=== PATIENT | male | born 1950 | race Caucasian/White ===

== ENCOUNTER 2017-10-26 00:35 | Inpatient (IN) | payer OTHER ==
[2017-10-26 02:34] LABS: ADD UMIC NO; UR ASCORBIC ACID NEGATIVE (NEGATIVE); UR BILIRUBIN (Dip) NEGATIVE (NEGATIVE); UR BLOOD (Dip) NEGATIVE (NEGATIVE); UR CLARITY CLEAR (CLEAR); UR COLOR YELLOW (YELLOW); UR GLUCOSE (Dip) NEGATIVE (NEGATIVE); UR KETONES (Dip) NEGATIVE (NEGATIVE); UR LEUKOCYTE ESTERASE (Dip) NEGATIVE Leu/ul (NEGATIVE); UR NITRITE (Dip) NEGATIVE (NEGATIVE); UR TOTAL PROTEIN (Dip) NEGATIVE (NEGATIVE); UR UROBILINOGEN (Dip) NEGATIVE (NEGATIVE)
[2017-10-26] MEDS ORDERED: BISACODYL 10 MG SUPP PR (04:00)
[2017-10-26] MEDS ORDERED: GLUCOSE GEL 15 GRAM TUBE PO ×2 (04:00)
[2017-10-26] MEDS ORDERED: GLUCOSE GEL 15 GRAM TUBE BUCCAL (04:00)
[2017-10-26] MEDS ORDERED: MAGNESIUM HYDROXIDE 30ML CUP PO (04:00)
[2017-10-26] MEDS ORDERED: GLUCAGON 1 MG INJ IM (04:00)
[2017-10-26] MEDS ORDERED: DEXTROSE 50% 50 ML SYRINGE IV ×2 (04:00)
[2017-10-26 06:48] LABS: ADD MAN DIFF? NO
[2017-10-26 06:50] LABS: WHITE BLOOD COUNT 6.8 10^3/ul (4.8-10.8)
[2017-10-26 06:50] LABS: BASOPHILS % 0.4 % (0.0-2.0); EOSINOPHILS # 0.3 10^3/ul (0.0-0.5); EOSINOPHILS % 4.7 % (0.0-7.0); HEMATOCRIT 38.7 % (42.0-52.0); HEMOGLOBIN 12.6 g/dl (14.0-18.0); LYMPHOCYTES # 2.5 10^3/ul (0.8-2.9); LYMPHOCYTES % 37.1 % (15.0-51.0); MEAN CORPUSCULAR HEMOGLOBIN 30.5 pg (29.0-33.0); MEAN CORPUSCULAR HGB CONC 32.6 g/dl (32.0-37.0); MEAN CORPUSCULAR VOLUME 93.7 fl (82.0-101.0); MEAN PLATELET VOLUME 10.5 fl (7.4-10.4); MONOCYTE # 0.6 10^3/ul (0.3-0.9); MONOCYTES % 8.6 % (0.0-11.0); NEUTROPHIL # 3.3 10^3/ul (1.6-7.5); NEUTROPHILS % 48.9 % (39.0-77.0); PLATELET COUNT 236 10^3/UL (140-415); RED BLOOD COUNT 4.13 10^6/ul (4.70-6.10); RED CELL DISTRIBUTION WIDTH 13.5 % (11.5-14.5)
[2017-10-26] MEDS: PANTOPRAZOLE (EC) 40 MG TAB PO (06:59)
[2017-10-26 07:11] LABS: ALANINE AMINOTRANSFERASE 30 IU/L (13-69); ALBUMIN 3.5 g/dl (3.3-4.9); ALBUMIN/GLOBULIN RATIO 1.25; ALKALINE PHOSPHATASE 67 IU/L (42-121); ANION GAP 13 (8-16); ASPARTATE AMINO TRANSFERASE 24 IU/L (15-46); BILIRUBIN,INDIRECT 0.5 mg/dl (0-1.1); BILIRUBIN,TOTAL 0.5 mg/dl (0.2-1.3); BLOOD UREA NITROGEN 23 mg/dl (7-20); CALCIUM 9.3 mg/dl (8.4-10.2); CARBON DIOXIDE 32 mmol/L (21-31); CHLORIDE 103 mmol/L (97-110); CREATININE 0.93 mg/dl (0.61-1.24); GLUCOSE 120 mg/dl (70-220); POTASSIUM 3.8 mmol/L (3.5-5.1); SODIUM 144 mmol/L (135-144); TOTAL PROTEIN 6.3 g/dl (6.1-8.1)
[2017-10-26] MEDS: metFORMIN 850 MG TAB PO (08:58)
[2017-10-26] MEDS: DOCUSATE SODIUM 100 MG CAP PO ×2 (09:00→19:55)
[2017-10-26] MEDS: APIXABAN 5 MG TABLET PO ×2 (09:00→19:55)
[2017-10-26] MEDS: AMLODIPINE 10 MG TAB PO ×2 (09:01→19:55)
[2017-10-26] MEDS: LISINOPRIL 20 MG TAB PO (09:02)
[2017-10-26] MEDS: FLUOXETINE 20 MG CAP PO (09:02)
[2017-10-26] MEDS: ASPIRIN 81 MG TAB PO (09:04)
[2017-10-26] MEDS: SENNA TAB PO (20:01)
[2017-10-26] MEDS: ATORVASTATIN 80 MG TAB PO (20:01)
[2017-10-27] MEDS: PANTOPRAZOLE (EC) 40 MG TAB PO (06:33)
[2017-10-27] MEDS: metFORMIN 850 MG TAB PO (09:52)
[2017-10-27] MEDS: ASPIRIN 81 MG TAB PO (09:52)
[2017-10-27] MEDS: DOCUSATE SODIUM 100 MG CAP PO ×2 (09:52→20:32)
[2017-10-27] MEDS: AMLODIPINE 10 MG TAB PO ×2 (09:53→20:31)
[2017-10-27] MEDS: APIXABAN 5 MG TABLET PO ×2 (09:53→20:31)
[2017-10-27] MEDS: LISINOPRIL 20 MG TAB PO (09:54)
[2017-10-27] MEDS: FLUOXETINE 20 MG CAP PO (09:54)
[2017-10-27] MEDS: ATORVASTATIN 80 MG TAB PO (20:31)
[2017-10-27] MEDS: SENNA TAB PO (20:32)
[2017-10-28] MEDS: PANTOPRAZOLE (EC) 40 MG TAB PO (06:26)
[2017-10-28] MEDS: metFORMIN 850 MG TAB PO (08:51)
[2017-10-28] MEDS: FLUOXETINE 20 MG CAP PO (08:52)
[2017-10-28] MEDS: ASPIRIN 81 MG TAB PO (08:52)
[2017-10-28] MEDS: AMLODIPINE 10 MG TAB PO ×2 (08:52→21:15)
[2017-10-28] MEDS: DOCUSATE SODIUM 100 MG CAP PO ×2 (08:52→21:00)
[2017-10-28] MEDS: LISINOPRIL 20 MG TAB PO (08:53)
[2017-10-28] MEDS: APIXABAN 5 MG TABLET PO ×2 (08:53→21:16)
[2017-10-28] MEDS: SENNA TAB PO (21:00)
[2017-10-28] MEDS: ATORVASTATIN 80 MG TAB PO (21:15)
[2017-10-29] MEDS: PANTOPRAZOLE (EC) 40 MG TAB PO (06:25)
[2017-10-29] MEDS: metFORMIN 850 MG TAB PO (08:40)
[2017-10-29] MEDS: ASPIRIN 81 MG TAB PO (08:41)
[2017-10-29] MEDS: DOCUSATE SODIUM 100 MG CAP PO ×2 (08:42→20:51)
[2017-10-29] MEDS: AMLODIPINE 10 MG TAB PO ×2 (08:43→21:03)
[2017-10-29] MEDS: APIXABAN 5 MG TABLET PO ×2 (08:44→20:51)
[2017-10-29] MEDS: FLUOXETINE 20 MG CAP PO (08:44)
[2017-10-29] MEDS: LISINOPRIL 20 MG TAB PO (08:54)
[2017-10-29] MEDS: SENNA TAB PO (20:50)
[2017-10-29] MEDS: ATORVASTATIN 80 MG TAB PO (20:51)
[2017-10-30] MEDS: PANTOPRAZOLE (EC) 40 MG TAB PO (06:08)
[2017-10-30] MEDS: metFORMIN 850 MG TAB PO (08:07)
[2017-10-30] MEDS: DOCUSATE SODIUM 100 MG CAP PO ×2 (08:07→21:32)
[2017-10-30] MEDS: APIXABAN 5 MG TABLET PO ×2 (08:08→21:32)
[2017-10-30] MEDS: LISINOPRIL 20 MG TAB PO (08:08)
[2017-10-30] MEDS: AMLODIPINE 10 MG TAB PO ×2 (08:08→21:33)
[2017-10-30] MEDS: ASPIRIN 81 MG TAB PO (08:08)
[2017-10-30] MEDS: FLUOXETINE 20 MG CAP PO (08:08)
[2017-10-30] MEDS: SENNA TAB PO (21:32)
[2017-10-30] MEDS: ATORVASTATIN 80 MG TAB PO (21:32)
[2017-10-31] MEDS: PANTOPRAZOLE (EC) 40 MG TAB PO (06:26)
[2017-10-31] MEDS: APIXABAN 5 MG TABLET PO ×2 (08:52→22:42)
[2017-10-31] MEDS: LISINOPRIL 20 MG TAB PO (08:52)
[2017-10-31] MEDS: ASPIRIN 81 MG TAB PO (08:52)
[2017-10-31] MEDS: FLUOXETINE 20 MG CAP PO (08:52)
[2017-10-31] MEDS: AMLODIPINE 10 MG TAB PO ×2 (08:52→22:41)
[2017-10-31] MEDS: DOCUSATE SODIUM 100 MG CAP PO ×2 (08:53→22:41)
[2017-10-31] MEDS: metFORMIN 850 MG TAB PO (08:53)
[2017-10-31] MEDS: SENNA TAB PO (22:30)
[2017-10-31] MEDS: ATORVASTATIN 80 MG TAB PO (22:41)
[2017-11-01] MEDS: PANTOPRAZOLE (EC) 40 MG TAB PO (06:38)
[2017-11-01] MEDS: metFORMIN 850 MG TAB PO (08:35)
[2017-11-01] MEDS: DOCUSATE SODIUM 100 MG CAP PO ×2 (08:36→20:45)
[2017-11-01] MEDS: FLUOXETINE 20 MG CAP PO (08:36)
[2017-11-01] MEDS: AMLODIPINE 10 MG TAB PO ×2 (08:36→20:45)
[2017-11-01] MEDS: LISINOPRIL 20 MG TAB PO (08:36)
[2017-11-01] MEDS: APIXABAN 5 MG TABLET PO ×2 (08:36→20:45)
[2017-11-01] MEDS: ASPIRIN 81 MG TAB PO (08:37)
[2017-11-01] MEDS: ACETAMINOPHEN 325 MG TAB PO (14:10)
[2017-11-01] MEDS: ATORVASTATIN 80 MG TAB PO (20:45)
[2017-11-01] MEDS: SENNA TAB PO (20:45)
[2017-11-02] MEDS: PANTOPRAZOLE (EC) 40 MG TAB PO (06:30)
[2017-11-02] MEDS: APIXABAN 5 MG TABLET PO ×2 (08:38→20:20)
[2017-11-02] MEDS: FLUOXETINE 20 MG CAP PO (08:38)
[2017-11-02] MEDS: LISINOPRIL 20 MG TAB PO (08:38)
[2017-11-02] MEDS: DOCUSATE SODIUM 100 MG CAP PO ×2 (08:38→20:20)
[2017-11-02] MEDS: metFORMIN 850 MG TAB PO (08:39)
[2017-11-02] MEDS: ASPIRIN 81 MG TAB PO (08:39)
[2017-11-02] MEDS: AMLODIPINE 10 MG TAB PO ×2 (08:39→20:20)
[2017-11-02] MEDS: ACETAMINOPHEN 325 MG TAB PO (13:16)
[2017-11-02] MEDS: ATORVASTATIN 80 MG TAB PO (20:20)
[2017-11-02] MEDS: SENNA TAB PO (20:23)
[2017-11-03] MEDS: PANTOPRAZOLE (EC) 40 MG TAB PO (06:05)
[2017-11-03] MEDS: APIXABAN 5 MG TABLET PO ×2 (08:53→20:25)
[2017-11-03] MEDS: metFORMIN 850 MG TAB PO (08:53)
[2017-11-03] MEDS: AMLODIPINE 10 MG TAB PO ×2 (08:53→20:25)
[2017-11-03] MEDS: ACETAMINOPHEN 325 MG TAB PO (08:53)
[2017-11-03] MEDS: DOCUSATE SODIUM 100 MG CAP PO ×2 (08:54→20:29)
[2017-11-03] MEDS: ASPIRIN 81 MG TAB PO (08:54)
[2017-11-03] MEDS: LISINOPRIL 20 MG TAB PO (08:54)
[2017-11-03] MEDS: FLUOXETINE 20 MG CAP PO (08:54)
[2017-11-03] MEDS: LACTULOSE 30ML CUP PO (12:41)
[2017-11-03] MEDS: ATORVASTATIN 80 MG TAB PO (20:24)
[2017-11-03] MEDS: SENNA TAB PO (20:29)
[2017-11-04] MEDS: PANTOPRAZOLE (EC) 40 MG TAB PO (06:34)
[2017-11-04] MEDS: DOCUSATE SODIUM 100 MG CAP PO (09:00)
[2017-11-04] MEDS: FLUOXETINE 20 MG CAP PO (09:12)
[2017-11-04] MEDS: LISINOPRIL 20 MG TAB PO (09:13)
[2017-11-04] MEDS: APIXABAN 5 MG TABLET PO (09:15)
[2017-11-04] MEDS: AMLODIPINE 10 MG TAB PO (09:15)
[2017-11-04] MEDS: metFORMIN 850 MG TAB PO (09:15)
[2017-11-04] MEDS: ASPIRIN 81 MG TAB PO (09:15)
== END 2017-11-04 17:30 | disposition home or self-care (01) | DRG 57 ==
LOC: VRC 00:35
DX: I69.322 Dysarthria following cerebral infarction (principal); I69.351 Hemiplegia and hemiparesis following cerebral infarction affecting right dominant side; E11.9 Type 2 diabetes mellitus without complications; I10 Essential (primary) hypertension; F32.9 Major depressive disorder, single episode, unspecified; D64.9 Anemia, unspecified; E78.5 Hyperlipidemia, unspecified; F06.31 Mood disorder due to known physiological condition with depressive features; F06.8 Other specified mental disorders due to known physiological condition; Z87.891 Personal history of nicotine dependence
CPT/HCPCS: 80053; 81003; 83036; 85025; 87081; 87086; 92507; 97110; 97112; 97116; 97163; 97530; 97535; 97542

== ENCOUNTER 2018-03-24 07:48 | Day surgery (SDC) | payer OTHER ==
[~2018-03-24 07:48] MED LIST: LACTATED RINGER'S 1,000 ML IV; SOD CHLORIDE 0.9% 1,000 ML IV
[2018-03-24] MEDS ORDERED: LIDOCAINE 1%/EPI 30 ML INJ (09:57)
[2018-03-24] MEDS ORDERED: MIDAZOLAM 1 MG/ML 2 ML INJ (09:57)
[2018-03-24] MEDS ORDERED: LIDOCAINE 1% (MDV) 20 ML INJ (09:57)
[2018-03-24] MEDS ORDERED: FENTAnyl 50 MCG/ML VIAL (09:57)
== END 2018-03-24 11:48 | disposition home or self-care (01) ==
LOC: SDS 07:48
DX: I63.9 Cerebral infarction, unspecified (principal); I48.91 Unspecified atrial fibrillation
CPT/HCPCS: 33284; 82962